=== PATIENT | male | born 1945 | race Caucasian/White ===

== ENCOUNTER 2017-05-12 03:09 | Inpatient (IN) | payer OTHER, MEDICARE ==
[2017-05-12] VITALS (12 sets, daily range): BP systolic 102–131; BP diastolic 53–67; PULSE 76–109; RESP 16–20; TEMP 97–98.8; O2SAT 93–98
[~2017-05-12] VITALS: Ht 177.8 cm; Wt 83.9 kg
[~2017-05-12 03:09] MED LIST: LISI10TA PO; OMEP20TA PO
[2017-05-12] MEDS ORDERED: SODIUM CHLORIDE 0.9% FLUSH 10 ML FLUSH IV FLUSH PRN ×2 (03:15→05:45)
[2017-05-12 03:53] LABS: AUTOMATED NEUTROPHIL # 11.6 TH/MM3 (1.8-7.7); BASOPHIL # 0.5 TH/MM3 (0-0.2); BASOPHIL % 3.9 % (0.0-2.0); EOSINOPHIL # 0.1 TH/MM3 (0-0.4); EOSINOPHIL % 0.8 % (0.0-4.0); HEMATOCRIT 38.8 % (39.0-51.0); LYMPH % 6.2 % (9.0-44.0); LYMPHOCYTE # 0.8 TH/MM3 (1.0-4.8); MEAN CORPUSCULAR HEMOGLOBIN 27.9 PG (27.0-34.0); MEAN CORPUSCULAR HGB CONC 33.6 % (32.0-36.0); MONO % 4.8 % (0.0-8.0); NEUT % 84.3 % (16.0-70.0); PLATELET COUNT 327 TH/MM3 (150-450); RED BLOOD COUNT 4.68 MIL/MM3 (4.50-5.90); RED CELL DISTRIBUTION WIDTH 12.7 % (11.6-17.2); WHITE BLOOD COUNT 13.7 TH/MM3 (4.0-11.0)
--- NOTE | 2017-05-12 04:00 | PD ---
HPI Chief Complaint: Abdominal Pain Time Seen by Provider: 03:15 Travel History International Travel<30 days: No Contact w/Intl Traveler<30days: No Traveled to known affect area: No History of Present Illness HPI 71 yo M c/o LLQ pain and L abdomen pain since about 6pm. The man drank chocolate milk yesterday. His pain started shortly thereafter. Numerous episodes diarrhea thereafter are reported, one episode after the other throughout the entirety of the evening and sugar sampler. No vomiting or fever. Pain is constant and worse with palpation. Severity moderate. 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 HEAD: Atraumatic. Normocephalic. EYES: Pupils equal and round. No scleral icterus. No injection or drainage. ENT: No nasal bleeding or discharge. Mucous membranes pink and moist. NECK: Trachea midline. No JVD. CARDIOVASCULAR: Regular rate and rhythm. RESPIRATORY: No accessory muscle use. Clear to auscultation. Breath sounds equal bilaterally. GASTROINTESTINAL: Voluntary guarding. TTP L abdomen. MUSCULOSKELETAL: Extremities without clubbing, cyanosis, or edema. No obvious deformities. NEUROLOGICAL: Awake and alert. No obvious cranial nerve deficits. Motor grossly within normal limits. Five out of 5 muscle strength in the arms and legs. Normal speech. PSYCHIATRIC: Appropriate mood and affect; insight and judgment normal. Data Data Last Documented VS Vital Signs Date Time Temp Pulse Resp B/P Pulse Ox O2 Delivery O2 Flow Rate FiO2 05/12/17 04:39 18 05/12/17 04:36 95 118/61 97 Room Air 05/12/17 03:47 98.3 temp 98.3 Orders Complete Blood Count With Diff (05/12/17 03:15) Comprehensive Metabolic Panel (05/12/17 03:15) Lipase (05/12/17 03:15) Lactic Acid (05/12/17 03:15) Urinalysis - C+S If Indicated (05/12/17 03:15) Iv Access Insert/Monitor (05/12/17 03:15) Ecg Monitoring (05/12/17 03:15) Oximetry (05/12/17 03:15) Sodium Chloride 0.9% Flush (Ns Flush) (05/12/17 03:15) Morphine Inj (Morphine Inj) (05/12/17 04:15) Ondansetron Inj (Zofran Inj) (05/12/17 04:15) Ct Abd/Pel W/O Iv Contrast (05/12/17 03:15) Ciprofloxacin 400 Mg Premix (Cipro 400 M (05/12/17 05:30) Metronidazole 500 Mg Inj (Flagyl 500 Mg (05/12/17 05:30) Sodium Chlor 0.9% 1000 Ml Inj (Ns 1000 M (05/12/17 05:45) Admit Order (Ed Use Only) (05/12/17 05:36) Labs Laboratory Tests Test 05/12/17 03:40 White Blood Count 13.7 TH/MM3 Red Blood Count 4.68 MIL/MM3 Hemoglobin 13.1 GM/DL Hematocrit 38.8 % Mean Corpuscular Volume 83.0 FL Mean Corpuscular Hemoglobin 27.9 PG Mean Corpuscular Hemoglobin 33.6 % Concent Red Cell Distribution Width 12.7 % Platelet Count 327 TH/MM3 Mean Platelet Volume 6.9 FL Neutrophils (%) (Auto) 84.3 % Lymphocytes (%) (Auto) 6.2 % Monocytes (%) (Auto) 4.8 % Eosinophils (%) (Auto) 0.8 % Basophils (%) (Auto) 3.9 % Neutrophils # (Auto) 11.6 TH/MM3 Lymphocytes # (Auto) 0.8 TH/MM3 Monocytes # (Auto) 0.7 TH/MM3 Eosinophils # (Auto) 0.1 TH/MM3 Basophils # (Auto) 0.5 TH/MM3 CBC Comment DIFF FINAL Differential Comment Sodium Level 130 MEQ/L Potassium Level 4.6 MEQ/L Chloride Level 94 MEQ/L Carbon Dioxide Level 25.3 MEQ/L Anion Gap 11 MEQ/L Blood Urea Nitrogen 21 MG/DL Creatinine 2.40 MG/DL Estimat Glomerular Filtration 27 ML/MIN Rate Random Glucose 109 MG/DL Lactic Acid Level 2.8 mmol/L Calcium Level 9.2 MG/DL Total Bilirubin 0.6 MG/DL Aspartate Amino Transf 19 U/L (AST/SGOT) Alanine Aminotransferase 15 U/L (ALT/SGPT) Alkaline Phosphatase 40 U/L Total Protein 7.9 GM/DL Albumin 3.9 GM/DL Lipase 162 U/L [facility] Medical Decision Making Medical Screen Exam Complete: Yes Emergency Medical Condition: Yes Medical Record Reviewed: Yes Differential Diagnosis Gastritis, pancreatitis, appendicitis, acute cholecystitis, ascending cholangitis, AAA, perforated viscous, mesenteric ischemia, hepatitis, cystitis, hydronephrosis/hydroureter/nephroureter calculus, mesenteric adenitis, biliary colic Narrative Course CBC & BMP Diagram 05/12/17 03:40 Last 24 hours Impressions Abdomen/Pelvis CT 05/12/17 0315 Signed Impressions: Service Date/Time: Wednesday, May 12, 2017 04:40 - CONCLUSION: 1. Acute diverticulitis. 2. There are tiny nodules in the right lower lung most likely benign, repeat noncontrast chest CT is suggested in 6 months as a conservative follow up. Jamari Manzano MD LFTs normal Lipase normal Cipro/Flagyl started. Admission for diverticulitis. d/w Dr Brar Diagnosis Primary Impression: Diverticulitis Qualified Code: K57.32 - Diverticulitis of large intestine without perforation or abscess without bleeding Admitting Information Admitting Physician Requests: Admit Kevin Ramon MD May 12, 2017 04:00 Kevin Ramon MD May 12, 2017 04:00
[2017-05-12 04:04] LABS: HEMO FLAGS DIFF FINAL
[2017-05-12] MEDS ORDERED: ONDANSETRON HCL 4 MG/2 ML VIAL IV PUSH ONE (04:15)
[2017-05-12] MEDS ORDERED: MORPHINE SULFATE 8 MG/ML INJ IV PUSH ONE ×2 (04:15→06:00)
[2017-05-12 04:26] LABS: CHLORIDE 94 MEQ/L (98-107); POTASSIUM 4.6 MEQ/L (3.5-5.1); SODIUM (NA) 130 MEQ/L (136-145)
[2017-05-12 04:30] LABS: ANION GAP 11 MEQ/L (5-15); BICARBONATE 25.3 MEQ/L (21.0-32.0); BLOOD UREA NITROGEN 21 MG/DL (7-18)
[2017-05-12 04:33] LABS: ALT (GPT) 15 U/L (12-78); AST (GOT) 19 U/L (15-37); GLOMERULAR FILTRATION RATE 27 ML/MIN (>89)
[2017-05-12 04:34] LABS: TOTAL BILIRUBIN ADULT 0.6 MG/DL (0.2-1.0)
[2017-05-12 04:35] LABS: ALKALINE PHOSPHATASE 40 U/L (45-117)
--- NOTE | 2017-05-12 05:15 | RADHPO ---
EXAM DATE/TIME: 05/12/2017 04:40 [place] COMPARISON: No previous studies available for comparison. INDICATIONS : Lower lower quadrant pain since this evening ORAL CONTRAST: No oral contrast ingested. RADIATION DOSE: 7.77 CTDIvol (mGy) MEDICAL HISTORY : Hypertension. Gastroesophageal reflux disease. SURGICAL HISTORY : Defibrillator. ENCOUNTER: Initial ACUITY: 1 day PAIN SCALE: 9/10 LOCATION: Left lower quadrant Abdomen TECHNIQUE: Volumetric scanning of the abdomen and pelvis was performed. Using automated exposure control and ad justment of the mA and/or kV according to patient size, radiation dose was kept as low as reasonably achievable to obtain optimal diagnostic quality images. FINDINGS: CT Abdomen: The liver, pancreas, kidneys, adrenals are unremarkable. There is no evidence for any jean reciable pathological adenopathy, free fluid, or bowel obstruction. Chronic vascular calcifications are present involving the aorta, iliac arteries without any significant stenosis or aneurysmal dilata tions for technique. There are a couple of tiny nodules in right middle lobe measuring 3 mm and 4 mm each with slight parenchymal density in right lung laterally adjacent to the major fissure probably c hronic and benign. There are calcified granulomas within the spleen. Approximate 1.8 cm duodenal dive rticulum is present coming off the second portion of the duodenum. CT pelvis: There is no evidence for mass, abscess formation, or any significant adenopathy within the pelvis. The prostate gland is inhomogeneous and measures 3.6 x 4.8 cm in AP and transverse diameters and nonspecific. There are diverticuli within the colon with narrowing of the descending colon and p ericolonic infiltration extending into the Gerota's fascia. CONCLUSION: 1. Acute diverticulitis. 2. There are tiny nodules in the right lower lung most likely benign, repeat noncontrast chest CT is suggested in 6 months as a conservative follow up. Jamari Manzano MD on May 12, 2017 at 5:08 Board Certified Radiologist. This report was verified electronically.
[2017-05-12] MEDS ORDERED: metroNIDAZOLE 500 MG INJ 100 ML IV ONE (05:30)
[2017-05-12] MEDS ORDERED: CIPROFLOXACIN 400 MG PREMIX 200 ML IV ONE (05:30)
[2017-05-12] MEDS ORDERED: SODIUM CHLOR 0.9% 1000 ML INJ 1,000 ML IV SCH (05:45)
[2017-05-12] MEDS ORDERED: ONDANSETRON HCL 4 MG/2 ML VIAL IVP PRN (05:45)
[2017-05-12] MEDS ORDERED: NALOXONE HCL 0.4 MG/ML AMP IV PRN (05:45)
[2017-05-12] MEDS: SODIUM CHLOR 0.9% 1000 ML INJ 1,000 ML IV SCH ×2 (06:34→15:35)
[2017-05-12] MEDS: SODIUM CHLORIDE 0.9% FLUSH 10 ML FLUSH IV FLUSH SCH ×2 (09:00→21:35)
[2017-05-12] MEDS: metroNIDAZOLE 500 MG INJ 100 ML IV SCH ×3 (10:14→21:35)
--- NOTE | 2017-05-12 11:14 | HHI.HP ---
[facility] Service [facility] Primary Care Physician [facility] Admission Diagnosis Diverticulitis Diagnoses: (1) Diverticulitis (2) Acute worsening of stage 3 chronic kidney disease (3) Hypertension (4) Hyponatremia (5) Lactic acidosis Chief Complaint: Abdominal pain, diarrhea Travel History International Travel<30 Days: No Contact w/Intl Traveler <30 Da: No Traveled to Known Affected Are: No History of Present Illness The patient is a 71-year-old male who presented to the emergency department with complaint of sharp pain in his left lower quadrant that started at 6 PM yesterday. He reports having diarrhea. Denies fever, chills, night sweats. No nausea or vomiting. The pain has not improved. Review of Systems Constitutional: DENIES: Fever, Chills, Night Sweats Eyes: DENIES: Blurred vision, Vision loss Ears, nose, mouth, throat: DENIES: Hearing loss Respiratory: DENIES: Cough, Wheezing, Sputum production, Shortness of breath Cardiovascular: DENIES: Chest pain, Palpitations, Dyspnea on Exertion, Lower Extremity Edema Gastrointestinal: COMPLAINS OF: Abdominal pain, Diarrhea, DENIES: Constipation , Nausea, Vomiting Genitourinary: DENIES: Urinary frequency, Urinary incontinence, Urgency, Hematuria, Dysuria, Nocturia Musculoskeletal: DENIES: Joint pain, Muscle aches Integumentary: DENIES: Pruritus, Rash Hematologic/lymphatic: DENIES: Bruising Neurologic: DENIES: Headache Past Family Social History Past Medical History Hypertension GERD Past Surgical History Right leg surgery Cancer removed from nose Reported Medications Lisinopril-Hctz 10-12.5 Mg Tab 1 Tab PO DAILY Omeprazole 20 Mg Tab 20 Mg PO DAILY Allergies: Coded Allergies: Zinc (Verified Allergy, Severe, 05/12/17) Family History Denies Social History Denies alcohol, tobacco, or illicit drug use. Physical Exam Vital Signs Vital Signs Date Time Temp Pulse Resp B/P Pulse Ox O2 Delivery O2 Flow Rate FiO2 05/12/17 08:48 97.0 89 19 107/57 98 05/12/17 07:22 98.8 80 16 102/56 95 Room Air 05/12/17 06:36 79 16 115/53 97 Room Air 05/12/17 05:40 87 16 126/65 95 Room Air 05/12/17 04:39 18 05/12/17 04:36 95 18 118/61 97 Room Air 05/12/17 04:35 18 05/12/17 03:47 98.3 95 20 131/62 96 Room Air 05/12/17 03:35 18 05/12/17 03:13 109 18 102/67 Physical Exam GENERAL: Elderly male in no acute distress. Appears uncomfortable. HEENT: Normocephalic, atraumatic. Pupils equal, round and reactive. Extraocular movements intact. No scleral icterus. No injection or drainage. Oropharynx is clear. Mucous membranes are moist. CARDIOVASCULAR: Regular rate and rhythm without murmurs, gallops, or rubs. RESPIRATORY: Clear to auscultation. No wheezes, rales, or rhonchi. Breathing is non-labored. GASTROINTESTINAL: Abdomen soft. Tender to palpation in the left lower quadrant. EXTREMITIES: No lower extremity edema. No calf tenderness. PSYCH: Alert and oriented x 3. Laboratory Laboratory Tests Test 05/12/17 03:40 White Blood Count 13.7 Red Blood Count 4.68 Hemoglobin 13.1 Hematocrit 38.8 Mean Corpuscular Volume 83.0 Mean Corpuscular Hemoglobin 27.9 Mean Corpuscular Hemoglobin 33.6 Concent Red Cell Distribution Width 12.7 Platelet Count 327 Mean Platelet Volume 6.9 Neutrophils (%) (Auto) 84.3 Lymphocytes (%) (Auto) 6.2 Monocytes (%) (Auto) 4.8 Eosinophils (%) (Auto) 0.8 Basophils (%) (Auto) 3.9 Neutrophils # (Auto) 11.6 Lymphocytes # (Auto) 0.8 Monocytes # (Auto) 0.7 Eosinophils # (Auto) 0.1 Basophils # (Auto) 0.5 CBC Comment DIFF FINAL Differential Comment Sodium Level 130 Potassium Level 4.6 Chloride Level 94 Carbon Dioxide Level 25.3 Anion Gap 11 Blood Urea Nitrogen 21 Creatinine 2.40 Estimat Glomerular Filtration 27 Rate Random Glucose 109 Lactic Acid Level 2.8 Calcium Level 9.2 Total Bilirubin 0.6 Aspartate Amino Transf 19 (AST/SGOT) Alanine Aminotransferase 15 (ALT/SGPT) Alkaline Phosphatase 40 Total Protein 7.9 Albumin 3.9 Lipase 162 Result Diagram: 05/12/17 0340 05/12/17 0340 Imaging Last Impressions Abdomen/Pelvis CT 05/12/17314 Signed Impressions: Service Date/Time: Friday, May 12, 2017 04:40 - CONCLUSION: 1. Acute diverticulitis. 2. There are tiny nodules in the right lower lung most likely benign, repeat noncontrast chest CT is suggested in 6 months as a conservative follow up. Jamari Manzano MD Assessment and Plan Assessment and Plan 1. Diverticulitis: Keep nothing by mouth. Continue antibiotics, pain control, IV fluids. Consider GI consult if no improvement. 2. Lung nodules: Follow-up CT in 6 months per radiology recommendations. 3. Hypertension: Continue home medications. 4. GERD: Continue PPI. 5. Lactic acidosis: Follow serum lactic acid level. 6. Hyponatremia: Continue IV fluids. Monitor labs. 7. Acute kidney injury superimposed on chronic kidney disease stage III: Monitor BUN and creatinine. Continue IV fluids. Patient reports decreased urine output today. Consider nephrology consult. 8. DVT prophylaxis: SCDmalina, MARÍA cespedes. Problem Qualifiers (1) Diverticulitis: Qualified Code: K57.32 - Diverticulitis of large intestine without perforation or abscess without bleeding Maximiliano Perez MD May 12, 2017 11:13
[2017-05-12 11:27] LABS: BLOOD, URINE NEG (NEG); GLUCOSE,URINE NEG (NEG); KETONE, URINE NEG (NEG); NITRITE,URINE NEG (NEG)
[2017-05-12 11:40] LABS: COMMENT (UR) CULT NOT INDICATED; CULTURE IF INDICATED CULT NOT INDICATED; METHOD OF COLLECTION CLEAN CATCH; RBC, URINE 0-3 /hpf (0-3); SQUAMOUS EPITHELIAL CELL URINE 0-5 /hpf (0-5); URINE COLOR YELLOW (YELLW/STRAW); WBC, URINE 0-2 /hpf (0-5)
[2017-05-12 13:17] LABS: POTASSIUM 4.5 MEQ/L (3.5-5.1)
[2017-05-12 13:41] LABS: BICARBONATE 26.4 MEQ/L (21.0-32.0)
[2017-05-12] MEDS ORDERED: MORPHINE SULFATE 4 MG/ML INJ IV PUSH PRN ×2 (15:15)
[2017-05-12] MEDS: CIPROFLOXACIN 400 MG PREMIX 200 ML IV SCH (17:06)
[2017-05-13] MEDS: SODIUM CHLOR 0.9% 1000 ML INJ 1,000 ML IV SCH ×3 (03:59→22:09)
[2017-05-13 04:00] VITALS: BP 129/64; PULSE 84; RESP 16; TEMP 96.7; O2SAT 98
[2017-05-13] MEDS: metroNIDAZOLE 500 MG INJ 100 ML IV SCH ×4 (04:00→22:09)
[2017-05-13] MEDS: CIPROFLOXACIN 400 MG PREMIX 200 ML IV SCH ×2 (05:39→16:39)
[2017-05-13 06:22] LABS: AUTOMATED NEUTROPHIL # 6.5 TH/MM3 (1.8-7.7); BASOPHIL % 0.4 % (0.0-2.0); EOSINOPHIL # 0.1 TH/MM3 (0-0.4); EOSINOPHIL % 1.8 % (0.0-4.0); HEMATOCRIT 30.1 % (39.0-51.0); HEMO FLAGS DIFF FINAL; LYMPH % 11.5 % (9.0-44.0); LYMPHOCYTE # 0.9 TH/MM3 (1.0-4.8); MEAN CELL VOLUME 84.7 FL (80.0-100.0); MEAN CORPUSCULAR HEMOGLOBIN 28.3 PG (27.0-34.0); MEAN CORPUSCULAR HGB CONC 33.4 % (32.0-36.0); MONO % 7.8 % (0.0-8.0); NEUT % 78.5 % (16.0-70.0); PLATELET COUNT 212 TH/MM3 (150-450); RED BLOOD COUNT 3.55 MIL/MM3 (4.50-5.90); RED CELL DISTRIBUTION WIDTH 12.8 % (11.6-17.2); WHITE BLOOD COUNT 8.1 TH/MM3 (4.0-11.0)
[2017-05-13 06:32] LABS: POTASSIUM 4.3 MEQ/L (3.5-5.1)
[2017-05-13 06:36] LABS: BICARBONATE 26.2 MEQ/L (21.0-32.0)
--- NOTE | 2017-05-13 07:18 | MB ---
cc: VINNY AVITIA DATE OF 1945 DATE OF CONSULTATION 05/12/2017 REASON FOR REFERRAL Abdominal pain and some rectal bleeding. Thank you for the consultation. HISTORY OF PRESENT ILLNESS A pleasant 71-year-old gentleman who came to the emergency room with right or left lower quadrant pain, in the last 24 hours severe, almost 9/10 with no radiation, not related to food. The patient stated that he never had any similar problem before. He had some diarrhea with some a small amount of blood, dark. No nausea, no vomiting, no other complaint. Never had a colonoscopy before. MEDICATIONS Reviewed in the chart. ALLERGIES ZINC. FAMILY HISTORY Noncontributory. SOCIAL HISTORY Negative for tobacco, drug or alcohol. PAST MEDICAL HISTORY Significant for - 1. Hypertension. 2. Reflux symptoms. 3. Skin cancer on the nose. 4. Right neck surgery. REVIEW OF SYSTEMS All 12-points negative except HPI. PHYSICAL EXAMINATION GENERAL: Alert, oriented, in no acute distress. VITAL SIGNS: Temperature and vital signs stable. HEENT: Pupils are round, reactive to light. NECK: Supple. CHEST: Clear. CARDIAC: Regular rate and rhythm. ABDOMEN: Soft, nondistended. Significant tenderness in the left lower quadrant and no hepatosplenomegaly. Positive bowel sounds. EXTREMITIES: No edema, clubbing or cyanosis. NEUROLOGIC: Intact. LABORATORY DATA White count 13.7, hemoglobin 13.1, platelet 327. Chemistries: Normal liver function tests, BUN 21, creatinine 2.4. IMAGING STUDIES CT scan showed acute diverticulitis. ASSESSMENT AND PLAN A 71-year-old gentleman who has a history of acute onset of abdominal pain, some diarrhea and minimal blood, most likely diverticular disease with diverticulitis. Agree with antibiotics. The patient will need a colonoscopy as an outpatient to rule out malignancy and we will continue supportive care. will follow up with you. MD BALDEV Leyva/JESSICA /6:44 PM /7:05 AM
[2017-05-13 08:00] VITALS: BP 118/61; PULSE 79; RESP 18; TEMP 97.4; O2SAT 98
[2017-05-13] MEDS: SODIUM CHLORIDE 0.9% FLUSH 10 ML FLUSH IV FLUSH SCH ×2 (10:30→21:00)
[2017-05-13 12:00] VITALS: BP 143/73; PULSE 78; RESP 18; TEMP 97.7; O2SAT 98
--- NOTE | 2017-05-13 12:03 | HHI.PR ---
Subjective Remarks Follow up diverticulitis. Patient states that he feels much better today. Still having watery stools, and still having blood in the stool. No nausea or vomiting. He wants to try eating soup. Objective Vitals Vital Signs Date Time Temp Pulse Resp B/P Pulse Ox O2 Delivery O2 Flow Rate FiO2 05/13/17 08:00 97.4 79 18 118/61 98 05/13/17 04:00 96.7 84 16 129/64 98 05/12/17 23:26 97.0 82 18 116/65 93 05/12/17 21:43 76 05/12/17 19:28 97.3 78 18 114/64 05/12/17 16:37 98.1 88 19 105/60 96 05/12/17 15:42 20 05/12/17 12:04 97.2 79 19 109/56 98 I/O 05/12/17 05/12/17 05/12/17 05/13/17 05/13/17 05/13/17 06:59 14:59 22:59 06:59 14:59 22:59 Intake Total 500 ml Balance 500 ml Intake IV Total 500 ml # Voids 2 2 # Bowel Movements 1 Result Diagram: 05/13/17 0544 05/13/17 0544 Imaging Last Impressions Abdomen/Pelvis CT 05/12/175 Signed Impressions: Service Date/Time: Wednesday, May 12, 2017 04:40 - CONCLUSION: 1. Acute diverticulitis. 2. There are tiny nodules in the right lower lung most likely benign, repeat noncontrast chest CT is suggested in 6 months as a conservative follow up. Jamari Manzano MD Objective Remarks General: No acute distress. Heart: Regular rate and rhythm. No murmur. Lungs: Clear to auscultation bilaterally. No wheezes, rales, or rhonchi. Breathing is nonlabored. Abdomen: Soft, mild tenderness to palpation in the left lower quadrant, nondistended. Extremities: No lower extremity edema. Psych: Alert and oriented. Urinary Catheter: No Vascular Central Line Catheter: No A/P Problem List: (1) Diverticulitis ICD Code: K57.92 Status: Acute (2) Acute worsening of stage 3 chronic kidney disease ICD Code: N18.3 Status: Acute (3) Hypertension ICD Code: I10 Status: Chronic (4) Hyponatremia ICD Code: E87.1 Status: Acute (5) Lactic acidosis ICD Code: E87.2 Status: Resolved Assessment and Plan 1. Diverticulitis: Improving clinically. Advance diet. Continue antibiotics, pain control, IV fluids. 2. Lung nodules: Follow-up CT in 6 months per radiology recommendations. 3. Hypertension: Continue home medications. 4. GERD: Continue PPI. 5. Lactic acidosis: Follow serum lactic acid level. 6. Hyponatremia: Improving. Continue IV fluids. Monitor labs. 7. Acute kidney injury superimposed on chronic kidney disease stage III: BUN/ creatinine are trending down. Continue IV fluids. Patient reports decreased urine output today. Consider nephrology consult. 8. Hematochezia: Likely secondary to diverticulitis. Appreciate GI recommendations. Will need outpatient colonoscopy. 9. DVT prophylaxis: SCDs, MARÍA cespedes. Problem Qualifiers (1) Diverticulitis: Qualified Code: K57.32 - Diverticulitis of large intestine without perforation or abscess without bleeding Maximiliano Perez MD May 13, 2017 12:03
[2017-05-13 16:00] VITALS: BP 135/72; PULSE 79; RESP 18; TEMP 98.3; O2SAT 98
--- NOTE | 2017-05-13 18:48 | HHI.GIFU ---
Subjective Remarks less abdominal pain today, but still significant tenderness, no active bleed Objective Vitals I&O Vital Signs Date Time Temp Pulse Resp B/P Pulse Ox O2 Delivery O2 Flow Rate FiO2 05/13/17 16:00 98.3 79 18 135/72 98 05/13/17 12:00 97.7 78 18 143/73 98 05/13/17 08:00 97.4 79 18 118/61 98 05/13/17 04:00 96.7 84 16 129/64 98 05/12/17 23:26 97.0 82 18 116/65 93 05/12/17 21:43 76 05/12/17 19:28 97.3 78 18 114/64 I/O 05/12/17 05/12/17 05/12/17 05/13/17 05/13/17 05/13/17 07:00 15:00 23:00 07:00 15:00 23:00 Intake Total 500 ml 120 ml Output Total 500 ml Balance 500 ml 120 ml -500 ml Intake Oral 120 ml IV Total 500 ml Output Urine Total 500 ml # Voids 2 2 # Bowel Movements 1 Laboratory Laboratory Tests Test 05/13/17 05:44 White Blood Count 8.1 Red Blood Count 3.55 Hemoglobin 10.1 Hematocrit 30.1 Mean Corpuscular Volume 84.7 Mean Corpuscular Hemoglobin 28.3 Mean Corpuscular Hemoglobin 33.4 Concent Red Cell Distribution Width 12.8 Platelet Count 212 Mean Platelet Volume 6.7 Neutrophils (%) (Auto) 78.5 Lymphocytes (%) (Auto) 11.5 Monocytes (%) (Auto) 7.8 Eosinophils (%) (Auto) 1.8 Basophils (%) (Auto) 0.4 Neutrophils # (Auto) 6.5 Lymphocytes # (Auto) 0.9 Monocytes # (Auto) 0.6 Eosinophils # (Auto) 0.1 Basophils # (Auto) 0.0 CBC Comment DIFF FINAL Differential Comment Sodium Level 135 Potassium Level 4.3 Chloride Level 100 Carbon Dioxide Level 26.2 Anion Gap 9 Blood Urea Nitrogen 21 Creatinine 2.10 Estimat Glomerular Filtration 31 Rate Random Glucose 103 Calcium Level 7.8 Date/Time Procedure Status Source Growth 05/13/17 00:00 Stool Occult Blood (BI) - Final Complete Stool Stool HEMOCCULT POSITIVE Physical Exam HEENT: Pupils round and reactive to light; normocephalic; atraumatic; no jaundice. Throat is clear. NECK: Neck is supple, no JVD, no lymphadenopathy. CHEST: Chest is clear to auscultation and percussion. CARDIAC: Regular rate and rhythm with no murmur gallop or rubs. ABDOMEN: Soft, nondistended, moderate to sever LLQ tenderness; no hepatosplenomegaly; bowel sounds are present in all four quadrants. EXTREMITIES: No clubbing, cyanosis, or edema. SKIN: Normal; no rash; no jaundice. RANGE MANAGER: No focal deficits; alert and oriented times three. Assessment and Plan Plan abdominal pain, LLQ, abnormal CT scan C/W diverticulitis, WBC is better but still having pain. no active bleed dropped HGB most likely hydration and possible bleed recommendations continue antibiotic clear liquid colonoscopy in few wks monitor H/H Mohit Kennedy MD May 13, 2017 18:48
[2017-05-13 19:47] VITALS: BP 153/85; PULSE 80; RESP 18; TEMP 98.1; O2SAT 95
[2017-05-13 22:00] VITALS: PULSE 83
[2017-05-14] VITALS: BP 168/94; PULSE 90; RESP 18; TEMP 96; O2SAT 97
[2017-05-14 04:00] VITALS: BP 149/89; PULSE 78; RESP 18; TEMP 97.2; O2SAT 97
[2017-05-14] MEDS: metroNIDAZOLE 500 MG INJ 100 ML IV SCH ×2 (04:22→12:52)
[2017-05-14 06:06] LABS: AUTOMATED NEUTROPHIL # 5.1 TH/MM3 (1.8-7.7); BASOPHIL % 0.3 % (0.0-2.0); EOSINOPHIL # 0.2 TH/MM3 (0-0.4); EOSINOPHIL % 2.5 % (0.0-4.0); HEMATOCRIT 31.3 % (39.0-51.0); HEMO FLAGS DIFF FINAL; LYMPH % 14.1 % (9.0-44.0); LYMPHOCYTE # 0.9 TH/MM3 (1.0-4.8); MEAN CELL VOLUME 83.5 FL (80.0-100.0); MEAN CORPUSCULAR HEMOGLOBIN 26.8 PG (27.0-34.0); MEAN CORPUSCULAR HGB CONC 32.1 % (32.0-36.0); MONO % 7.2 % (0.0-8.0); NEUT % 75.9 % (16.0-70.0); PLATELET COUNT 230 TH/MM3 (150-450); RED BLOOD COUNT 3.74 MIL/MM3 (4.50-5.90); RED CELL DISTRIBUTION WIDTH 12.5 % (11.6-17.2); WHITE BLOOD COUNT 6.7 TH/MM3 (4.0-11.0)
[2017-05-14 06:14] LABS: POTASSIUM 4.5 MEQ/L (3.5-5.1)
[2017-05-14 06:18] LABS: BICARBONATE 25.9 MEQ/L (21.0-32.0)
[2017-05-14] MEDS: CIPROFLOXACIN 400 MG PREMIX 200 ML IV SCH (06:22)
[2017-05-14 08:00] VITALS: BP 164/92; PULSE 74; RESP 18; TEMP 98; O2SAT 100
[2017-05-14] MEDS: SODIUM CHLOR 0.9% 1000 ML INJ 1,000 ML IV SCH (08:19)
[2017-05-14] MEDS: SODIUM CHLORIDE 0.9% FLUSH 10 ML FLUSH IV FLUSH SCH (08:19)
--- NOTE | 2017-05-14 11:35 | HHI.GIFU ---
Subjective Remarks doing well, no abdominal pain, tolerating diet, no GI bleed Objective Vitals I&O Vital Signs Date Time Temp Pulse Resp B/P Pulse Ox O2 Delivery O2 Flow Rate FiO2 05/14/17 08:00 98.0 74 18 164/92 100 05/14/17 04:00 97.2 78 18 149/89 97 05/14/17 00:00 96.0 90 18 168/94 97 05/13/17 22:00 83 05/13/17 19:47 98.1 80 18 153/85 95 05/13/17 16:00 98.3 79 18 135/72 98 05/13/17 12:00 97.7 78 18 143/73 98 I/O 05/13/17 05/13/17 05/13/17 05/14/17 05/14/17 05/14/17 07:00 15:00 23:00 07:00 15:00 23:00 Intake Total 500 ml 120 ml 1200 ml Output Total 1100 ml 700 ml Balance 500 ml 120 ml -1100 ml 500 ml Intake Oral 120 ml IV Total 500 ml 1200 ml Output Urine Total 1100 ml 700 ml # Voids 2 1 Laboratory Laboratory Tests Test 05/14/17 05:37 White Blood Count 6.7 Red Blood Count 3.74 Hemoglobin 10.0 Hematocrit 31.3 Mean Corpuscular Volume 83.5 Mean Corpuscular Hemoglobin 26.8 Mean Corpuscular Hemoglobin 32.1 Concent Red Cell Distribution Width 12.5 Platelet Count 230 Mean Platelet Volume 6.6 Neutrophils (%) (Auto) 75.9 Lymphocytes (%) (Auto) 14.1 Monocytes (%) (Auto) 7.2 Eosinophils (%) (Auto) 2.5 Basophils (%) (Auto) 0.3 Neutrophils # (Auto) 5.1 Lymphocytes # (Auto) 0.9 Monocytes # (Auto) 0.5 Eosinophils # (Auto) 0.2 Basophils # (Auto) 0.0 CBC Comment DIFF FINAL Differential Comment Sodium Level 136 Potassium Level 4.5 Chloride Level 102 Carbon Dioxide Level 25.9 Anion Gap 8 Blood Urea Nitrogen 19 Creatinine 1.80 Estimat Glomerular Filtration 37 Rate Random Glucose 87 Calcium Level 7.7 Date/Time Procedure Status Source Growth 05/13/17 00:00 Stool Occult Blood (BI) - Final Complete Stool Stool HEMOCCULT POSITIVE Physical Exam HEENT: Pupils round and reactive to light; normocephalic; atraumatic; no jaundice. Throat is clear. NECK: Neck is supple, no JVD, no lymphadenopathy. CHEST: Chest is clear to auscultation and percussion. CARDIAC: Regular rate and rhythm with no murmur gallop or rubs. ABDOMEN: Soft, nondistended, minimal tenderness; no hepatosplenomegaly; bowel sounds are present in all four quadrants. EXTREMITIES: No clubbing, cyanosis, or edema. SKIN: Normal; no rash; no jaundice. DIETARY ASSISTANT: No focal deficits; alert and oriented times three. Assessment and Plan Plan abdominal pain, LLQ, abnormal CT scan C/W diverticulitis, WBC is better but still having pain. no active bleed dropped HGB most likely hydration and possible bleed 05-13-17 diverticulitis, resolving continue Abx, recommendations continue antibiotic STEVIE colonoscopy in few wks monitor H/H Mohit Kennedy MD May 14, 2017 11:35
[2017-05-14 12:00] VITALS: BP 168/74; PULSE 74; RESP 18; TEMP 97.2; O2SAT 98
[2017-05-14] MEDS ORDERED: CIPR500T2 PO (13:16)
[2017-05-14] MEDS ORDERED: METR500T10 PO (13:16)
--- NOTE | 2017-05-14 13:17 | HHI.DCPOC ---
Discharge Care Plan Diagnosis: (1) Rectal bleeding (2) Diverticulitis (3) Hyponatremia (4) Acute worsening of stage 3 chronic kidney disease (5) Lactic acidosis (6) Hypertension Goals to Promote Your Health * To prevent worsening of your condition and complications * To maintain your health at the optimal level Directions to Meet Your Goals Take your medications as prescribed Follow your dietary instruction Follow activity as directed Keep your appointments as scheduled Take your immunizations and boosters as scheduled If your symptoms worsen call your PCP, if no PCP go to Urgent Care Center or Emergency Room Smoking is Dangerous to Your Health. Avoid second hand smoke Call the 24-hour hour crisis hotline for domestic abuse at Maximiliano Perez MD May 14, 2017 13:16
--- NOTE | 2017-05-14 13:19 | HHI.DS ---
Discharge Summary Admission Date May 12, 2017 at 05:38 Discharge Date: May 14, 2017 Admitting Diagnosis Diverticulitis (1) Diverticulitis ICD Code: K57.92 (2) Acute worsening of stage 3 chronic kidney disease ICD Code: N18.3 (3) Hypertension ICD Code: I10 (4) Hyponatremia ICD Code: E87.1 (5) Lactic acidosis ICD Code: E87.2 Procedures None Brief History - From Admission The patient is a 71-year-old male who presented to the emergency department with complaint of sharp pain in his left lower quadrant that started at 6 PM yesterday. He reports having diarrhea. Denies fever, chills, night sweats. No nausea or vomiting. The pain has not improved. CBC/BMP: 05/14/17 0537 05/14/17 0537 Significant Findings Laboratory Tests Test 05/12/17 05/12/17 05/12/17 05/13/17 03:40 11:20 12:40 05:44 White Blood Count 13.7 TH/MM3 (4.0-11.0) Hematocrit 38.8 % 30.1 % (39.0-51.0) (39.0-51.0) Mean Platelet Volume 6.9 FL 6.7 FL (7.0-11.0) (7.0-11.0) Neutrophils (%) (Auto) 84.3 % 78.5 % (16.0-70.0) (16.0-70.0) Lymphocytes (%) (Auto) 6.2 % (9.0-44.0) Basophils (%) (Auto) 3.9 % (0.0-2.0) Neutrophils # (Auto) 11.6 TH/MM3 (1.8-7.7) Lymphocytes # (Auto) 0.8 TH/MM3 0.9 TH/MM3 (1.0-4.8) (1.0-4.8) Basophils # (Auto) 0.5 TH/MM3 (0-0.2) Sodium Level 130 MEQ/L 132 MEQ/L 135 MEQ/L (136-145) (136-145) (136-145) Chloride Level 94 MEQ/L 96 MEQ/L (98-107) (98-107) Blood Urea Nitrogen 21 MG/DL (7-18) 22 MG/DL (7-18) 21 MG/DL (7-18) Creatinine 2.40 MG/DL 2.30 MG/DL 2.10 MG/DL (0.60-1.30) (0.60-1.30) (0.60-1.30) Estimat Glomerular Filtration 27 ML/MIN (>89) 28 ML/MIN (>89) 31 ML/MIN (>89) Rate Random Glucose 109 MG/DL 108 MG/DL (74-106) (74-106) Lactic Acid Level 2.8 mmol/L (0.4-2.0) Alkaline Phosphatase 40 U/L (45-117) Urine Hyaline Casts 6-9 /lpf (RARE) Calcium Level 7.9 MG/DL 7.8 MG/DL (8.5-10.1) (8.5-10.1) Red Blood Count 3.55 MIL/MM3 (4.50-5.90) Hemoglobin 10.1 GM/DL (13.0-17.0) Test 05/14/17 05:37 Red Blood Count 3.74 MIL/MM3 (4.50-5.90) Hemoglobin 10.0 GM/DL (13.0-17.0) Hematocrit 31.3 % (39.0-51.0) Mean Corpuscular Hemoglobin 26.8 PG (27.0-34.0) Mean Platelet Volume 6.6 FL (7.0-11.0) Neutrophils (%) (Auto) 75.9 % (16.0-70.0) Lymphocytes # (Auto) 0.9 TH/MM3 (1.0-4.8) Blood Urea Nitrogen 19 MG/DL (7-18) Creatinine 1.80 MG/DL (0.60-1.30) Estimat Glomerular Filtration 37 ML/MIN (>89) Rate Calcium Level 7.7 MG/DL (8.5-10.1) Imaging Last Impressions Abdomen/Pelvis CT 05/12/17 0315 Signed Impressions: Service Date/Time: Friday, May 12, 2017 04:40 - CONCLUSION: 1. Acute diverticulitis. 2. There are tiny nodules in the right lower lung most likely benign, repeat noncontrast chest CT is suggested in 6 months as a conservative follow up. Jamari Manzano MD PE at Discharge General: No acute distress. Heart: Regular rate and rhythm. No murmur. Lungs: Clear to auscultation bilaterally. No wheezes, rales, or rhonchi. Breathing is nonlabored. Abdomen: Soft, nontender, nondistended. Extremities: No lower extremity edema. Psych: Alert and oriented. Pt update on day of discharge The patient states that he feels much better today. Abdominal pain has essentially resolved. No nausea or vomiting. Had one loose bowel movement this morning. Hospital Course The patient was admitted for treatment of diverticulitis. He was noted to have blood in his stool. Gastroenterology was consulted. He was continued on antibiotics and IV fluids. Hemoglobin decreased somewhat from admission, but remained stable for the rest of the hospitalization. His diet was advanced. His symptoms improved significantly. He was felt to be stable for discharge home with instructions to follow-up with gastroenterology for outpatient colonoscopy. Pt Condition on Discharge: Stable Discharge Disposition: Discharge Home Discharge Time: > 30 minutes Discharge Instructions DIET: Follow Instructions for: Heart Healthy Diet Activities you can perform: Regular-No Restrictions Follow up Referrals: Gastroenterology - 1 Week PCP Follow-up - 2 Weeks New Medications: Ciprofloxacin (Ciprofloxacin) 500 Mg Tab 500 MG PO BID Infection #10 Ref 0 TAB Metronidazole (Metronidazole) 500 Mg Tab 500 MG PO TID Infection #15 Ref 0 TAB Continued Medications: Lisinopril-Hctz (Lisinopril-Hctz) 10-12.5 Mg Tab 1 TAB PO DAILY Blood Pressure Management #30 Ref 0 TAB Omeprazole (Omeprazole) 20 Mg Tab 20 MG PO DAILY #30 Ref 0 TAB Maximiliano Perez MD May 14, 2017 13:19
== END 2017-05-14 14:42 | disposition home or self-care (01) | DRG 392 ==
LOC: PHED 03:09 → PHEDA 05:38 → PH3B 08:37
PROVIDERS: ADMIT Family Medicine; ATTEND Family Medicine
DX: K57.32 Diverticulitis of large intestine without perforation or abscess without bleeding (principal); N17.9 Acute kidney failure, unspecified; E87.2 Acidosis; E87.1 Hypo-osmolality and hyponatremia; K92.1 Melena; N18.3 Chronic kidney disease, stage 3 (moderate); I12.9 Hypertensive chronic kidney disease with stage 1 through stage 4 chronic kidney disease, or unspecified chronic kidney disease; H91.90 Unspecified hearing loss, unspecified ear; K21.9 Gastro-esophageal reflux disease without esophagitis; R91.8 Other nonspecific abnormal finding of lung field; Z85.828 Personal history of other malignant neoplasm of skin
CPT/HCPCS: 74176; 80048; 80053; 81001; 82272; 83605; 83690; 85025; 96374; 96375; J0744; J2270; J2405; J7030